=== PATIENT | male | born 1995 | race Caucasian/White ===

== ENCOUNTER 2017-01-20 19:38 | Emergency (ER) | payer OTHER ==
[~2017-01-20] VITALS: Ht 177.8 cm; Wt 78.3 kg
[2017-01-20] MEDS ORDERED: SODIUM CHLORIDE FLUSH 10ML SYR IVF ONE (20:30)
[2017-01-20] MEDS ORDERED: PROCHLORPERAZINE 5 MG/ML, 2ML IVPush ONE (20:30)
[2017-01-20] MEDS ORDERED: SODIUM CHLORIDE 0.9% 1,000ML IVBOLUS ONE (20:30)
[2017-01-20 20:39] LABS: ASPARTATE AMINO TRANSFERASE 17 U/L (15-37); BLOOD UREA NITROGEN 15 mg/dL (7-18)
[2017-01-20] MEDS ORDERED: PROCHLORPERAZINE 5 MG/ML, 2ML ONE (21:17)
[2017-01-20 21:22] VITALS: BP 108/71
== END 2017-01-20 22:03 | disposition home or self-care (01) ==
LOC: ED 21:57
DX: A09 Infectious gastroenteritis and colitis, unspecified (principal); R11.2 Nausea with vomiting, unspecified
CPT/HCPCS: 36415; 80053; 83690; 85025; 96361; 96374; 99284; J0780; J7030

== ENCOUNTER 2020-04-07 10:10 | Emergency (ER) | payer OTHER ==
[~2020-04-07] VITALS: Ht 177.8 cm; Wt 83.6 kg
[2020-04-07] MEDS ORDERED: IBUPROFEN 600 MG TABLET PO ONE (12:30)
--- NOTE | 2020-04-07 12:31 | NUR ---
Pt here for burning sensation to lower R ext. Pt ststed that he had blood drawn recently, discomfort since procedure. No swelling, redness of note.
--- NOTE | 2020-04-07 12:36 | NUR ---
Pt redusing ibuprofen
--- NOTE | 2020-04-07 12:36 | NUR ---
US at bedside
[2020-04-07 13:40] VITALS: BP 111/73
== END 2020-04-07 13:42 | disposition home or self-care (01) ==
LOC: ED 12:56
DX: S44.8X1A Injury of other nerves at shoulder and upper arm level, right arm, initial encounter (principal); G43.909 Migraine, unspecified, not intractable, without status migrainosus; Z90.49 Acquired absence of other specified parts of digestive tract; X58.XXXA Exposure to other specified factors, initial encounter; Y93.89 Activity, other specified; Y92.89 Other specified places as the place of occurrence of the external cause; Y99.8 Other external cause status
CPT/HCPCS: 99284